=== PATIENT | female | born 1995 | race Caucasian/White ===

== ENCOUNTER 2020-10-25 14:52 | Emergency (ER) | payer OTHER, SELFPAY ==
[2020-10-25 15:05] VITALS: BP 133/80; PULSE 78; RESP 16; TEMP 37.3; O2SAT 100
--- NOTE | 2020-10-25 15:15 | ED.SKABFB ---
HPI - Skin/Abscess/Foreign Bdy General Chief complaint: Skin/Abscess/Foreign Body Stated complaint: rash Time Seen by Provider: 10/25/20 15:15 Source: patient and RN notes reviewed Mode of arrival: ambulatory Limitations: no limitations History of Present Illness HPI narrative: 25-year-old female presents with concern for painful rash on her left axilla. Reports she has been dealing with a few small bumps into the arm for several months, however reports over the last 2 days she noticed the area has spread and become painful. She denies itching. She denies rash in any other area. She denies intervention. She denies chills, fever. She denies any drainage from the area. MD complaint: rash Related Data Allergies Allergy/AdvReac Type Severity Reaction Status Date / Time No Known Allergies Allergy Verified 10/25/20 15:11 Review of Systems Review of Systems: CONSTITUTIONAL: Denies malaise, chills, sweats, or fever. ENT: Denies swollen lips, swollen tongue SKIN: Reports painful red bumps on the left axilla. MUSCULOSKELETAL: Denies myalgia. All systems reviewed & are unremarkable except as noted in HPI and below PMFSH Family History Family History Father Hypertension Heart disease Grandparent Hypertension Heart disease Social History Social History Smoking status: Never smoker Second hand tobacco smoke exposure: No Alcohol intake: current Comments At time of signature, agree with nursing past medical, surgical, social and family history. There is no relevant family history pertinent to the presenting complaint Exam Narrative: GENERAL: Well-appearing, well-nourished, and in no acute distress. HEAD: Normocephalic, atraumatic. EYES: PERRLA, conjunctivae clear, and EOMI. ENT: Mucous membranes moist. Oropharynx without edema, erythema or lesions. NECK: Supple. No lymphadenopathy CHEST: Clear to auscultation. No respiratory distress. HEART: Regular rate and rhythm. SKIN: Warm, dry. 13 cm x 9 cm patch of erythematous, tender papules noted to the left axilla NEURO: Alert and oriented x3. PSYCH: Normal mood and affect Course Course Emergency Course: Patient is aware of diagnosis, understands and agrees to treatment plan. Anticipatory guidance given. Patient agrees to follow-up as directed and is aware of reasons to seek care at the emergency department. Portions of this record may have been created with voice recognition software Vital Signs Vital signs: Vital Signs Temperature 99.1 F 10/25/20 15:05 Pulse Rate 78 10/25/20 15:05 Respiratory Rate 16 10/25/20 15:05 Blood Pressure 133/80 10/25/20 15:05 Pulse Oximetry 100 10/25/20 15:05 Temperature 99.1 F 10/25/20 15:05 Pulse Rate 78 10/25/20 15:05 Respiratory Rate 16 10/25/20 15:05 Blood Pressure 133/80 10/25/20 15:05 Pulse Oximetry 100 10/25/20 15:05 Reviewed. MDM - Skin/Abscess/Foreign Bdy MDM Narrative Medical decision making narrative: Does not appear at this time to be erythema multiforme, bullous, SJS, TEN; no evidence at this time to suggest RMSF, endocarditis or Lyme disease; patient looks well, nontoxic and is tolerating oral intake; no neurologic signs or symptoms; no headache, photophobia or neck pain; afebrile; appropriate for initial outpatient treatment; discussed the importance of follow-up, patient agrees; question, viral exanthema, contact dermatitis, allergic dermatitis, eczema, urticaria, shingles, folliculitis. No soft palate or uvula edema, no tongue, lip edema or other mucosal involvement, no respiratory compromise, no stridor, no wheezing, no wheezing, no history of syncope, no hypotension, no nausea, vomiting, or diarrhea. Instructed patient to go to nearest ER immediately for any worsening symptoms including but not limited to: fever, spreading rash, pain, sore throat, headache, dizziness, c
== END 2020-10-25 15:33 | disposition home or self-care (01) ==
PROVIDERS: Emergency Provider Nurse Practitioner; PCP Nurse Practitioner
DX: L73.9 Follicular disorder, unspecified (principal)
CPT/HCPCS: 99213; G0463

== ENCOUNTER 2020-11-11 17:47 | Emergency (ER) | payer OTHER, SELFPAY ==
[2020-11-11 17:56] VITALS: BP 125/73; PULSE 69; RESP 18; TEMP 37; O2SAT 100
--- NOTE | 2020-11-11 18:10 | ED.GENADULT ---
HPI - General Adult General Chief complaint: Skin/Abscess/Foreign Body Stated complaint: Rash on armpit Source: patient Mode of arrival: ambulatory Limitations: no limitations History of Present Illness HPI narrative: Patient is a 25-year-old female who presents to the [facility] via [facility]OV for evaluation of a skin problem located on right axilla that has been present for approximately 2 to 3 days. Additionally, she reports the area to be erythematous, sore, and pustular. She was seen at this facility on 10/25/2020 for the same problem. She was prescribed a 7-day course of Bactrim DS which she completed as prescribed. She reports symptoms resolved with Bactrim although returned a few days after completing treatment. She reports she has switched her razor and is practicing good hygiene for prevention of folliculitis. Related Data Allergies Allergy/AdvReac Type Severity Reaction Status Date / Time No Known Allergies Allergy Verified 11/11/20 17:49 Review of Systems Review of Systems: Denies injury. Pertinent negatives fever, chills, sweats, malaise, poor p.o. intake, change in appetite, headache, LOC, dizziness, streaking, drainage, numbness, tingling, loss of sensation, foreign body sensation, deformity, sob, chest pain, and heart palpitations/murmurs. [facility] Family History Family History Father Hypertension Heart disease Grandparent Hypertension Heart disease Social History Social History Smoking status: Never smoker Second hand tobacco smoke exposure: No Alcohol intake: current Comments I have reviewed and agree with the patient's past medical, surgical, social, and family hx as documented by the RN. There is no relevant family history pertinent to the presenting complaint. Exam Narrative: GENERAL: Well-appearing, well-nourished, and in no acute distress. HEAD: Normocephalic, atraumatic. No facial swelling appreciated. EYES: PERRLA and EOMI. No evidence of erythema, swelling, or drainage. ENT: Nares clear, no rhinorrhea or epistaxis.Mucous membranes moist and pink. Uvula is midline without erythema and swelling. No evidence of obstruction, petechial rash, cobblestoning, lesions, ulcers, erythema, swelling, exudates, peritonsillar abscess, tenting, or drooling. Breath odor and voice normal. NECK: Supple. No Lymphadenopathy or nuchal rigidity appreciated. CHEST: Bilateral lung lópez are clear to auscultation. No respiratory distress. No evidence of cough or pleuritic cp upon examination. HEART: Regular rate and rhythm. No murmur, gallop, or rub heard. EXTREMITIES: Normal range of motion. No edema. SKIN: Warm, dry. Mild to moderate rash consistent with folliculitis noted to lateral aspect of right axilla. No evidence of abscess, streaking, induration, abrasions/lacerations, petechiae, hematoma, contusion, drainage, or bleeding. NEURO: No focal deficits. Alert and oriented x3. SPECIAL OBSERVATIONS: Smiling. Laughing. No evidence of discomfort. Course Vital Signs Vital signs: Vital Signs Temperature 98.6 F 11/11/20 17:56 Pulse Rate 69 11/11/20 17:56 Respiratory Rate 18 11/11/20 17:56 Blood Pressure 125/73 11/11/20 17:56 Pulse Oximetry 100 11/11/20 17:56 Temperature 98.6 F 11/11/20 17:56 Pulse Rate 69 11/11/20 17:56 Respiratory Rate 18 11/11/20 17:56 Blood Pressure 125/73 11/11/20 17:56 Pulse Oximetry 100 11/11/20 17:56 Reviewed Medical Decision Making Differential Diagnosis Differential Diagnosis: Folliculitis, contact/allergic dermatitis, atopic dermatitis, psoriasis, cellulitis, tinea infection, parasite infection, shingles Medical Records Medical records reviewed: Yes I reviewed the external patient's medical records. Vital Signs Vital Signs: Vital Signs Temperature 98.6 F 11/11/20 17:56 Pulse Rate 69 11/11/20 17:56 Respiratory
== END 2020-11-11 18:29 | disposition home or self-care (01) ==
PROVIDERS: Emergency Provider Nurse Practitioner Family
DX: L73.9 Follicular disorder, unspecified (principal)
CPT/HCPCS: 99213; G0463